=== PATIENT | male | born 1980 | race Caucasian/White ===

== ENCOUNTER 2018-02-24 20:13 | Emergency (ER) | payer SELFPAY ==
[2018-02-24] MEDS ORDERED: PREDNISONE 20 MG TABLET PO ONE (23:07)
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
[2018-02-25 02:16] VITALS: BP 158/103
== END 2018-02-25 00:21 | disposition home or self-care (01) ==
LOC: ER 20:13
DX: L23.7 Allergic contact dermatitis due to plants, except food (principal); F17.200 Nicotine dependence, unspecified, uncomplicated; R03.0 Elevated blood-pressure reading, without diagnosis of hypertension
CPT/HCPCS: 99283; J7512